=== PATIENT | male | born 1995 | race Caucasian/White ===

== ENCOUNTER 2024-11-04 16:57 | Emergency (ER) | payer OTHER ==
[2024-11-04 17:15] VITALS: BP 107/94; PULSE 89; RESP 17; TEMP 97.7; BMI 30.4
[2024-11-04] MEDS: SODIUM CHLORIDE 1,000 ML IV STA ×2 (19:50→21:00)
[2024-11-04] MEDS ORDERED: ONDANSETRON 4 MG/2 ML VIAL ONE (19:51)
[2024-11-04] MEDS ORDERED: ACETAMINOPHEN INJECTION 100 ML ONE (19:51)
[2024-11-04] MEDS: ACETAMINOPHEN 1000 MG/100 ML BAG IVPB ONE (20:01)
[2024-11-04] MEDS: ONDANSETRON 4 MG/2 ML VIAL IVPB ONE (20:01)
[2024-11-04 20:58] LABS: HEMATOCRIT 54.3 % (35.4-49); HEMOGLOBIN 18.4 G/dL (11.7-16.9); MCH 29.4 pg (25.7-33.7); MCHC 33.8 g/dl (32.0-35.9); MEAN CELL VOLUME 86.8 fl (80-96); MEAN PLT VOLUME 8.5 fl (7.5-11.1); PLATELET COUNT 155.6 10^3/uL (134-434); RBC 6.25 10^6/uL (4.00-5.60); RDW 14.5 % (11.9-15.9)
[2024-11-04 21:07] LABS: ALBUMIN 5.1 g/dl (3.4-5.0); ALK PHOS 67 U/L (45-117); ANION GAP 9 mmol/L (4-13); BILIRUBIN,TOTAL 0.6 mg/dl (0.2-1); CALCIUM 9.8 mg/dl (8.5-10.1); CHLORIDE 101 mmol/L (98-107); CO2 30 mmol/L (21-32); CREATININE 1.1 mg/dl (0.6-1.3); GLUCOSE,RANDOM 116 mg/dl (74-106); SGOT/AST 18 U/L (15-37); SGPT/ALT 16 U/L (7-52); SODIUM 140 mmol/L (136-145); TOT PROT 7.5 g/dl (6.4-8.2)
[2024-11-04] MEDS ORDERED: KETOROLAC TROMETHAMINE 60 MG/2 ML VIAL ONE (22:04)
[2024-11-04] MEDS: KETOROLAC TROMETHAMINE 60 MG/2 ML VIAL IM ONE (22:13)
[2024-11-04 22:27] LABS: PLATELET ESTIMATE ADEQUATE
[2024-11-04 22:44] LABS: HIV INTERPRETATION NEGATIVE (NEGATIVE)
== END 2024-11-04 22:17 | disposition home or self-care (01) ==
LOC: FER 16:57
PROC: 3E033NZ Introduction of Analgesics, Hypnotics, Sedatives into Peripheral Vein, Percutaneous Approach (ICD-10-PCS; principal; 2024-11-04)
PROC: 3E033GC Introduction of Other Therapeutic Substance into Peripheral Vein, Percutaneous Approach (ICD-10-PCS; 2024-11-04)
PROC: 3E0337Z Introduction of Electrolytic and Water Balance Substance into Peripheral Vein, Percutaneous Approach (ICD-10-PCS; 2024-11-04)
PROC: 3E0337Z Introduction of Electrolytic and Water Balance Substance into Peripheral Vein, Percutaneous Approach (ICD-10-PCS; 2024-11-04)
PROC: 3E0133Z Introduction of Anti-inflammatory into Subcutaneous Tissue, Percutaneous Approach (ICD-10-PCS; 2024-11-04)
DX: A08.4 Viral intestinal infection, unspecified (principal)
CPT/HCPCS: 36415; 80053; 85027; 86803; 87389; 99284-25; J0131